=== PATIENT | male | born 1995 | race Caucasian/White ===

== ENCOUNTER 2017-08-15 18:13 | Emergency (ER) | payer OTHER ==
[2017-08-15 18:36] VITALS: RESP 20; TEMP 98.2
[2017-08-15 18:49] VITALS: BP 140/74; PULSE 74; O2SAT 99
== END 2017-08-15 19:59 | disposition home or self-care (01) ==
LOC: ED 18:13
DX: S80.01XA Contusion of right knee, initial encounter (principal); V43.62XA Car passenger injured in collision with other type car in traffic accident, initial encounter; R51 Headache; R10.9 Unspecified abdominal pain
CPT/HCPCS: 73560; 99282

== ENCOUNTER 2017-08-20 12:09 | Emergency (ER) | payer OTHER ==
[2017-08-20 12:21] VITALS: TEMP 98
[2017-08-20] MEDS ORDERED: SUMATRIPTAN SUCCINATE 6 MG/0.5 ML SOL SC ONE ×2 (12:56→12:59)
[2017-08-20] MEDS ORDERED: KETOROLAC TROMETHAMINE 30 MG/ML SOL IM ONE (12:57)
[2017-08-20] MEDS ORDERED: KETOROLAC TROMETHAMINE 30 MG/ML SOL ONE (12:59)
[2017-08-20 13:47] VITALS: RESP 18
[2017-08-20 13:49] VITALS: BP 111/67; PULSE 66; O2SAT 98
== END 2017-08-20 13:39 | disposition home or self-care (01) ==
LOC: ED 12:09
DX: S06.0X0D Concussion without loss of consciousness, subsequent encounter (principal); S13.4XXD Sprain of ligaments of cervical spine, subsequent encounter; V89.2XXD Person injured in unspecified motor-vehicle accident, traffic, subsequent encounter
CPT/HCPCS: 99284 ×3; J1885; J3030; 70450